=== PATIENT | male | born 1960 | race Hispanic/Latino ===

== ENCOUNTER → 2023-04-13 | Outpatient (CLI) | payer BC ==
[2023-04-13 21:54] VITALS: PULSE 56; RESP 18
[2023-04-13 22:30] VITALS: PULSE 60; RESP 14
[2023-04-13 23:00] VITALS: PULSE 58; RESP 14
[2023-04-13 23:30] VITALS: PULSE 58; RESP 14
[2023-04-14] VITALS (11 sets, daily range): PULSE 52–64; RESP 12–16
== END | disposition home or self-care (01) ==
LOC: SLP 20:10
PROVIDERS: ATTEND Nurse Practitioner Family
DX: G47.33 Obstructive sleep apnea (adult) (pediatric) (principal)
CPT/HCPCS: 95811